=== PATIENT | female | born 1965 | race Caucasian/White ===

== ENCOUNTER 2022-12-14 14:00 | Emergency (ER) | payer MEDICAID ==
[~2022-12-14] VITALS: Ht 160 cm; Wt 77.1 kg
[2022-12-14] MEDS ORDERED: PANTOPRAZOLE SODIUM 40 MG VIAL IV ONE (14:15)
[2022-12-14] MEDS ORDERED: IV NORMAL SALINE 1000 ML BAG IV ONE (14:15)
[2022-12-14] MEDS ORDERED: LIDOCAINE VISCUS 2% 15 ML UDC MM ONE (14:15)
[2022-12-14] MEDS ORDERED: ONDANSETRON 4 MG/2 ML VIAL IV ONE (14:15)
[2022-12-14] MEDS ORDERED: MAG HYDROX/AL HYDROX/SIMETH 30 ML LIQUID UDC PO ONE (14:15)
--- NOTE | 2022-12-14 14:25 | NUR ---
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
[2022-12-14 14:26] LABS: *OCCULT BLOOD STOOL POSITIVE (NEGATIVE)
[2022-12-14] MEDS ORDERED: ONDANSETRON 4 MG/2 ML VIAL ONE (14:36)
[2022-12-14] MEDS ORDERED: LIDOCAINE VISCUS 2% 15 ML UDC ONE (14:36)
[2022-12-14] MEDS ORDERED: PANTOPRAZOLE SODIUM 40 MG VIAL ONE (14:36)
[2022-12-14] MEDS ORDERED: MAG HYDROX/AL HYDROX/SIMETH 30 ML LIQUID UDC ONE (14:37)
[2022-12-14 14:43] LABS: HEMATOCRIT 34.8 % (31.2-41.9); MEAN CORPUSCULAR HEMOGLOBIN 28.9 uug (24.7-32.8); MEAN CORPUSCULAR VOLUME 85.9 fL (75.5-95.3); PLATELET COUNT (AUTO) 341 K/uL (179-408)
[2022-12-14] MEDS ORDERED: DULO60CA45 PO (14:58)
[2022-12-14] MEDS ORDERED: OXYC10TA49 PO (14:58)
[2022-12-14] MEDS ORDERED: HYDR12.55 PO (14:58)
[2022-12-14] MEDS ORDERED: IBUP-1957 PO (14:58)
[2022-12-14] MEDS ORDERED: PANT40TA2 PO (14:58)
[2022-12-14 15:01] LABS: CARBON DIOXIDE 28 mmol/L (21-32); CHLORIDE 105 mmol/L (98-107); CREATININE 0.6 mg/dL (0.6-1.3); GLUCOSE 85 mg/dL (74-106); POTASSIUM 3.9 mmol/L (3.5-5.1); UREA NITROGEN, BLOOD 16 mg/dL (7-18)
[2022-12-14 15:07] LABS: ALANINE AMINOTRANSFERASE 26 U/L (14-59); ALKALINE PHOSPHATASE 82 U/L (50-136); ASPARTATE AMINOTRANSFERASE 16 U/L (15-37); BILIRUBIN,DIRECT 0.1 mg/dL (0.0-0.2); BILIRUBIN,TOTAL 0.3 mg/dL (0.2-1.0); LIPASE 115 U/L (73-393); TOTAL PROTEIN, SERUM 6.8 g/dL (6.4-8.2)
[2022-12-14] MEDS ORDERED: FAMO-132 PO (16:54)
[2022-12-14] MEDS ORDERED: ONDA4TAB5 PO (16:54)
--- NOTE | 2022-12-14 18:18 | NUR ---
PT WAS EVALUATED BY DR CURRAN. PT WAS D/C'd TO HOME. D/C INSTRUCTIONS GIVEN TO THE PT BY DR CURRAN.
[2022-12-14 18:22] VITALS: BP 132/76
== END 2022-12-14 18:52 | disposition home or self-care (01) ==
LOC: ER 14:00
DX: K92.2 Gastrointestinal hemorrhage, unspecified (principal); R10.13 Epigastric pain; R11.0 Nausea; Z87.11 Personal history of peptic ulcer disease; I70.0 Atherosclerosis of aorta; Z96.641 Presence of right artificial hip joint; K64.4 Residual hemorrhoidal skin tags; M06.9 Rheumatoid arthritis, unspecified; J44.9 Chronic obstructive pulmonary disease, unspecified; G35 Multiple sclerosis; K21.9 Gastro-esophageal reflux disease without esophagitis
CPT/HCPCS: 99285; 74176; 96374; 96361; 96375; 82270; 80076; 80048; 82140; 83690; 85025; 85730; 93005; J2405; C9113; J7040; A4663